=== PATIENT | male | born 1955 | race Caucasian/White ===

== ENCOUNTER 2022-04-01 15:59 | Emergency (ER) | payer MEDICARE, SELFPAY ==
[2022-04-01 16:08] VITALS: BP 156/77; PULSE 101; RESP 18; TEMP 36.7; O2SAT 98
--- NOTE | 2022-04-01 16:21 | ED.URI ---
HPI - URI/Sore Throat General Chief Complaint: Upper Respiratory Infection Stated Complaint: Sinus Pain Time Seen by Provider: 04/01/22 16:25 Source: patient and RN notes reviewed Mode of arrival: ambulatory Limitations: no limitations History of Present Illness HPI Narrative: 66-year-old male presents concern for 3 day history of sinus drainage, sore throat, cough, chills, body aches. Reports productive cough and runny nose. He reports he took Mucinex and Benadryl. He denies fever. 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 MD elicited complaint: cough and sinus pain Related Data Home Medications Medication Instructions Recorded Confirmed atorvastatin 20 mg tablet 20 mg PO DAILY 01/28/21 04/01/22 losartan 100 mg tablet 100 mg PO DAILY 01/28/21 04/01/22 Allergies Allergy/AdvReac Type Severity Reaction Status Date / Time No Known Allergies Allergy Unverified 04/01/22 16:19 Review of Systems Review of Systems: CONSTITUTIONAL: Reports malaise, chills. Denies sweats, or fever. EYES: Denies visual changes, redness, or discharge. ENT: Reports rhinorrhea, congestion, sinus pain. Denies otalgia and sore throat. CARDIOVASCULAR: Denies chest pain, palpitations, or edema. RESPIRATORY: Reports cough. Denies dyspnea. GASTROINTESTINAL: Denies abdominal pain, nausea, vomiting, diarrhea SKIN: Denies rash or itching. MUSCULOSKELETAL: Reports myalgia. NEUROLOGIC: Denies headache. All systems reviewed & are unremarkable except as noted in HPI and below PMFSH Past Medical History Medical History (Updated 04/01/22 @ 16:33 by Marian Aguirre NP) Hypercholesteremia Hypertension Family History Family History Mother Hypertension Father Malignant neoplasm of prostate Sibling Family history of malignant neoplasm of esophagus Other Cerebrovascular accident Social History Social History Smoking status: Never smoker Second hand tobacco smoke exposure: No Smoking end date: 05/18/05 Alcohol intake: current Comments At time of signature, agree with nursing past medical, surgical, social and family history. There is no relevant family history pertinent to the presenting complaint Exam Narrative: GENERAL: Well-appearing, well-nourished, and in no acute distress. HEAD: Normocephalic EYES: PERRLA, conjunctivae clear ENT: Nares clear, turbinates edematous and erythematous, clear discharge. Mucous membranes moist. TM pearly howell with sharp light reflex bilaterally; no tragal tenderness. Oropharynx not erythematous without lesions. Tonsils not enlarged and without exudate, no drooling, no hoarseness, no trismus, uvula midline. NECK: Supple. No lymphadenopathy CHEST: Clear to auscultation, breath sounds equal. No wheezing, rhonchi, rales, or stridor. No respiratory distress, speaks in full sentences. HEART: Regular rate and rhythm. No murmur heard. SKIN: Warm, dry, no rash. NEURO: Alert and oriented x3. PSYCH: Normal mood and affect Course Course Emergency Course: Patient is aware of diagnosis, understands and agrees to treatment plan. Anticipatory guidance given. Patient agrees to follow-up as directed and is aware of reasons to seek care at the emergency department. Portions of this record may have been created with voice recognition software Level of Care: Express Care Visit Vital Signs Vital signs: Vital Signs Temperature 98.1 F 04/01/22 16:08 Pulse Rate 101 H 04/01/22 16:08 Respiratory Rate 18 04/01/22 16:08 Blood Pressure 156/77 H 04/01/22 16:08 Pulse Oximetry 98 04/01/22 16:08 Oxygen Delivery Room Air 04/01/22 16:08 Temperature 98.1 F 04/01/22 16:08 Pulse Rate 101 H 04/01/22 16:08 Respiratory Rate 18 04/01/22 16:08 Blood Pressure 156/77 H 04/01/22 16:08 Pulse Oximetry 98 04/01/22 16:08 Oxygen Delivery Room Air 04/01/22 16:08 Reviewed. MDM
== END 2022-04-01 16:50 | disposition home or self-care (01) ==
PROVIDERS: Emergency Provider Nurse Practitioner; PCP Internal Medicine
DX: J40 Bronchitis, not specified as acute or chronic (principal); J32.9 Chronic sinusitis, unspecified; I10 Essential (primary) hypertension
CPT/HCPCS: 99213; G0463

== ENCOUNTER 2022-04-06 08:19 | Emergency (ER) | payer MEDICARE, SELFPAY ==
--- NOTE | ~2022-04-06 | XR_ITS ---
EXAMINATION: XR chest 2V DATE: 04/06/2022 09:25 INDICATION: 9 days of cough TECHNIQUE: frontal and lateral views of the chest were obtained. COMPARISON: None FINDINGS: Airspace opacities in the posterior basilar left lower lobe which are concerning for pneumonia. No ot her airspace opacities, pulmonary edema, pleural effusion or pneumothorax. The cardiomediastinal silh ouette is normal. Mild lower thoracic spondylosis with mild anterior wedging at T11 and T12. IMPRESSION: 1. Left lower lobe pneumonia. Reviewed, dictated and finalized at location A. PITTER
[2022-04-06 08:24] VITALS: BP 141/68; PULSE 91; RESP 20; TEMP 36.7; O2SAT 96
--- NOTE | 2022-04-06 08:59 | ED.URI ---
HPI - URI/Sore Throat General Chief Complaint: Upper Respiratory Infection Stated Complaint: Sinus Congestion/Cough Time Seen by Provider: 04/06/22 08:55 Source: patient, RN notes reviewed and old records reviewed Mode of arrival: ambulatory Limitations: no limitations History of Present Illness HPI Narrative: 66-year-old male who presents to [facility] with complaints of illness since the 29 March which includes cough, headache, sinus pressure with nasal drainage. Patient states he was seen Thursday and given steroids which did seem initially to help but symptoms have increased in the past 2 days. Patient states initially he had some clear drainage but now it has turned to yellow and some brownish drainage. Patient reports he has coughed so much that his ribs hurt.Patient reports that he had taken cough syrup, Benadryl and also some Sudafed HBP for his symptoms. MD elicited complaint: cough, rhinorrhea, nasal congestion and sinus pain Onset (ago): day(s) (8-9 days) Pain scale (0-10): 6 Description of mucous: yellow and other (brown) Treatments prior to arrival: cold medicine and other (cough syrup) Related Data Home Medications Medication Instructions Recorded Confirmed atorvastatin 20 mg tablet 20 mg PO DAILY 01/28/21 04/06/22 losartan 100 mg tablet 100 mg PO DAILY 01/28/21 04/06/22 Allergies Allergy/AdvReac Type Severity Reaction Status Date / Time No Known Allergies Allergy Verified 04/06/22 08:45 Review of Systems Review of Systems: CONSTITUTIONAL: Reports malaise, chills, sweats, or fever. EYES: Denies visual changes, redness, or discharge. ENT: Reports rhinorrhea, congestion, sinus pain, no otalgia or sore throat. CARDIOVASCULAR: Denies chest pain, palpitations, or edema, rib pain with cough RESPIRATORY: Reports cough.? Denies dyspnea, reports pain to ribs with coughing GASTROINTESTINAL: Denies abdominal pain, nausea, vomiting, diarrhea SKIN: Denies rash or itching. MUSCULOSKELETAL: Denies myalgia. NEUROLOGIC: Reports headache. All systems reviewed & are unremarkable except as noted in HPI and below PMFSH Past Medical History Medical History (Updated 04/07/22 @ 00:00 by Nathan Hinojosa) Hypercholesteremia Hypertension Sleep apnea Surgical History Surgical History (Updated 04/06/22 @ 10:20 by Jenae Zapata NP) H/O removal of cyst Left shoulder [place] teeth extracted Family History Family History Mother Hypertension Father Malignant neoplasm of prostate Sibling Family history of malignant neoplasm of esophagus Other Cerebrovascular accident Social History Social History (Updated 04/06/22 @ 10:18 by Jenae Zapata NP) Smoking status: Former smoker Second hand tobacco smoke exposure: No Smoking end date: 05/18/05 Alcohol intake: current Substance use type: does not use Lack of Transportation: No Lack of Food: Never True Current Housing: I Have Housing Concerned About Future Housing: No Difficulty Paying Gas/Electric Bills: No Difficulty Paying for Meds: No Currently Unemployed: No Education: Associate Degree Difficulty w/ Childcare or Family Care: No Gender identity (if verbalized by the patient): Male Comments At time of signature, agree with nursing past medical, surgical, social and family history. There is no relevant family history pertinent to the presenting complaint Exam Narrative: GENERAL: Well-appearing, well-nourished, and in no acute distress. HEAD: Normocephalic EYES: PERRLA, conjunctivae clear ENT: Nares clear, turbinates edematous and erythematous, yellow to brown nasal discharge. Mucous membranes moist. TM pearly howell with dull light reflex bilaterally; no tragal tenderness. Oropharynx erythematous without lesions. Tonsils not enlarged and without exudate, no drooling, no hoarseness, no trismus, uvula midline. Postnasal drainage NEC
== END 2022-04-06 10:25 | disposition home or self-care (01) ==
PROVIDERS: Emergency Provider Registered Nurse; PCP Internal Medicine
DX: J18.9 Pneumonia, unspecified organism (principal); E78.00 Pure hypercholesterolemia, unspecified; I10 Essential (primary) hypertension; Z87.891 Personal history of nicotine dependence
CPT/HCPCS: 71046; 99213; G0463

== ENCOUNTER → 2022-07-02 15:05 | Outpatient (CLI) | payer MEDICARE, SELFPAY ==
--- NOTE | ~2022-07-02 | MR_ITS ---
EXAMINATION: MR shoulder RT wo con DATE: 07/02/2022 15:43 INDICATION: Right shoulder pain. TECHNIQUE: Magnetic resonance imaging (MRI) of the right shoulder was performed without intravenous c ontrast. Sequences included axial PD-weighted FS FSE, coronal oblique PD-weighted FS FSE and T2-weigh chema FS FSE, and sagittal oblique T2-weighted FS FSE and T1-weighted FSE. COMPARISON: Right shoulder radiographs 04/03/2022 FINDINGS: Coracoacromial arch: The acromion undersurface is flat in morphology (type I). There is severe acromioclavicular joint ost eoarthritis including inferiorly directed osteophytes. There is mild subacromial/subdeltoid bursitis. Rotator cuff: There is moderate supraspinatus tendinopathy and mild infraspinatus tendinopathy. Teres minor tendon is normal. There is mild subscapularis tendinopathy. No tear. There is no asymmetric fatty atrophy of the rotator cuff muscle bellies. Biceps tendon and glenoid labrum: Biceps tendon is in bicipital groove. Intra-articular biceps tendon is normal. The glenoid labrum is normal. Fluid: There is no glenohumeral joint effusion. Bones/cartilage: There is cartilage surface irregularity of glenoid and humeral head. IMPRESSION: 1. Moderate rotator cuff tendinopathy. No tear. 2. Mild glenohumeral joint chondrosis. 3. Severe acromioclavicular joint osteoarthritis. 4. Mild subacromial/subdeltoid bursitis. Reviewed, dictated and finalized at location A. ING MACHINE OPERATOR
== END ==
PROVIDERS: PCP Internal Medicine; Visit Provider Physician Assistant Surgical
DX: M19.011 Primary osteoarthritis, right shoulder (principal); M75.51 Bursitis of right shoulder
CPT/HCPCS: 73221

== ENCOUNTER 2022-09-08 07:44 | Outpatient (CLI) | payer MEDICARE, SELFPAY ==
--- NOTE | 2022-09-08 07:50 | ECG_ITS ---
Measurements Intervals [place] Rate: 85 P: 10 ME: 168 QRS: 19 QRSD: 109 T: 44 QT: 357 QTc: 427 Interpretive Statements SINUS RHYTHM NORMAL ECG NO PREVIOUS ECG AVAILABLE FOR COMPARISON Electronically Signed On 09-08-2022 11:56:17 CDT by Bony Ivey M.D.
== END 2022-09-08 07:45 | disposition home or self-care (01) ==
LOC: ANHSURGERY 07:49
PROVIDERS: PCP Internal Medicine; Visit Provider Orthopaedic Surgery
DX: I10 Essential (primary) hypertension (principal); Z01.818 Encounter for other preprocedural examination
CPT/HCPCS: 93005

== ENCOUNTER 2022-09-12 01:41 | Day surgery (SDC) | payer MEDICARE, SELFPAY ==
--- NOTE | 2022-09-04 15:34 | PC.NURSE ---
Report to the Outpatient Waiting Room, entrance under the green pavilion located off [facility], at time __10:00AM on date __09/12/22 . Planned Procedure Time: __12:00PM . Time changes happen often and if your time is changed the preop area will call you the afternoon before. - You and your visitor will be asked to self-screen and do not enter if you have any COVID symptoms. - A mask is optional within the hospital at this time. Patients may have clear liquids (water, carbonated beverages, clear teas, apple juice) until 3 hours prior to surgery with a maximum of 20 ounces. - No food from midnight until time of surgery Take the following medications with a SIP of water the morning of surgery: ____NONE DO NOT STOP ANY OF YOUR OTHER PRESCRIPTION MEDICATIONS PRIOR TO SURGERY ?EXCEPT THE FOLLOWING Medications to discontinue per physician HOLD ALL VITAMINS/SUPPLEMENTS 3 DAYS PRE-OP Date to take last dose 09/08/22 Please no make-up, nail mozambican, hairspray, perfume, deodorant, or body powder the day of surgery. No jewelry (including any body piercings) or valuables the day of surgery, leave them at home. Please take a shower or bath the night before, or the morning of, surgery with an antibacterial soap. Wear comfortable, loose fitting clothing. Children are encouraged to wear pajamas. - Jewelry must be removed prior to entering the operating room. Rings and piercings that are not removed may be cut off. - The hospital will not accept responsibility for valuables. - Please leave all valuables, including medications, at home the day of surgery. If you are going home after surgery, a licensed utility driver must drive you home. - NO public transportation without another adult if you receive anesthesia. - We recommend that an adult stay with you for 24 hours following discharge. - We also recommend that you do not drive, make important decision, drink alcoholic beverages, or take any drugs that were not prescribed by your health care provider for at least 24 hours after your discharge time.. Follow any additional instructions given to you from your surgeon. If you or anyone in your household have experienced Covid symptoms in the past week, please notify your surgeon or the nurse liaison at the phone number below for possible testing. Telephone instructions given to __PATIENT and asked if any additional questions and then verbalized understanding. Patient advised to call surgeon office or pre surgery nurse liaison [phone] if any additional questions.
--- NOTE | 2022-09-11 12:50 | WPDANESEPPF ---
Anes - Initial Pre Proc Eval Procedure: Operation Date: 09/12/22 12:00 Proposed Procedures p Arthroscopic Subacromial Decompression Right Shoulder, Proceed as Indicated - Boston Vogel MD Date/Time: 09/11/22 12:50 Surgeon: Boston Vogel MD Pre Op Diagnosis: Rt Rot Cuff Tendonitis Patient Data Age: 67 Gender: M Height: Weight: Allergies Allergy/AdvReac Type Severity Reaction Status Date / Time No Known Allergies Allergy Verified 09/04/22 14:05 Home Medications Medication Instructions Recorded Confirmed Type atorvastatin 20 mg tablet 20 mg PO HS 01/28/21 09/04/22 History losartan 100 mg tablet 100 mg PO HS 01/28/21 09/04/22 History cholecalciferol (vitamin D3) 125 125 mcg PO DAILY 09/04/22 09/04/22 History mcg (5,000 unit) capsule loratadine 10 mg capsule 10 mg PO DAILY 09/04/22 09/04/22 History vitamin A-vitamin C-vit E-min 1 tablet PO DAILY 09/04/22 09/04/22 History tablet Patient hx anesthesia problems: none Family hx anesthesia problems: none Results Review: All pre-operative results and documents have been reviewed as part of the pre-operative evaluation. [facility] Past Medical History Medical History Hypercholesteremia Hypertension Sleep apnea Surgical History Surgical History H/O removal of cyst Left shoulder [place] teeth extracted Family History Family History Mother Hypertension Father Malignant neoplasm of prostate Sibling Family history of malignant neoplasm of esophagus Other Cerebrovascular accident Social History Social History Smoking packs per day: 1.5 Smoking cigarettes per day: 30.0 Years smoked: 30 Smoking pack-years: 45.00 Smoking status: Former smoker Tobacco type: cigarettes Second hand tobacco smoke exposure: No Smoking end date: 11/16/15 Alcohol intake: current Substance use: never Substance use type: does not use Lack of Transportation: No Lack of Food: Never True Current Housing: I Have Housing Concerned About Future Housing: No Difficulty Paying Gas/Electric Bills: No Difficulty Paying for Meds: No Currently Unemployed: No Education: Associate Degree Difficulty w/ Childcare or Family Care: No Living arrangements: with family Additional living arrangements comments: Gender identity (if verbalized by the patient): Male Spiritual care concerns: No Anes - Eval Final PreProcedure Day of Procedure 09/11/22 12:50 Patient weight: obese Heart: regular rate and rhythm Lungs: clear to auscultation Airway: Mallampati scale class III Neurological: alert and oriented Last oral intake: >/= 8 hours ASA classification: III Emergent: no Anesthetic plan: proceed Anesthesia type and monitoring: general ETT and standard monitoring Results Review: All pre-operative results and documents have been reviewed as part of the pre-operative evaluation. Informed Consent: The patient's anesthetic plan and its attendant risks and benefits were discussed with the patient/family/POA. Questions were solicited and answers provided to the satisfaction of the patient/family/POA.
[2022-09-12] VITALS (10 sets, daily range): BP systolic 148–181; BP diastolic 74–90; PULSE 80–99; RESP 14–20; TEMP 36.2; O2SAT 93–100; BMI 32.7
[2022-09-12] MEDS: LACTATED RINGERS 1,000 ML 30 ML IV CONT (10:30)
[2022-09-12] MEDS: ACETAMINOPHEN 500 MG TABLET 1000 MG PO (10:30)
[2022-09-12] MEDS: KETOROLAC 15 MG/ML VIAL (*BKC) IV PUSH (10:30)
--- NOTE | 2022-09-12 12:22 | WPDHPUPDATE1 ---
History and Physical Update Update Date/Time: 09/12/22 12:22 History and Physical has been reviewed, including an updated exam of the patient. There are NO changes in the patient's condition. Risks, benefits, and alternatives have been discussed and questions answered. Patient agrees to proceed with procedure.
--- NOTE | 2022-09-12 12:52 | WPDANESPNB ---
Anes - Peripheral Nerve Block Date/Time: 09/12/22 12:52 I have discussed with the patient/family/POA the placement of a peripheral nerve block for post-operative pain management, including associated risks, benefits, complications, and side effects. Alternative methods of post-operative analgesia were detailed. Questions were solicited and answers provided to the satisfaction of the patient/family/POA. Time-Out: A pre-procedural Time-Out was completed immediately before starting the procedure and confirmed: Patient Identification, Site, Procedure, Patient Position and the Availability of Requisite Equipment. Clinical Indications: Acute post-operative pain management requested by the operative surgeon. Nerve Block Insertion Note Anes-nerve block: interscalene right Patient position: supine Skin prep: chlorhexidine Needle: 22 gauge, stimulating, insulated echogenic needle. Needle length: 50 mm Technique: ultrasound Injectate: bupivacaine 0.5% with epi 5 mcg/ml (30cc- no epi) Observations: tolerated well Complications: none Procedure start time:: 1244 Procedure end time:: 124
[2022-09-12] MEDS: ceFAZolin 2 GM/D5W 50 ML 2 GM/50 ML BAG IVPB (13:04)
--- NOTE | 2022-09-12 14:55 | P.OP_ITS ---
Procedure Note - Detailed Date of Procedure 09/12/22 Pre-op Diagnosis Right shoulder rotator cuff tendonitis and impingement. Post-op Diagnosis Other (1. Rotator cuff tear (partial thickness) 2. Subacromial impingement ) Procedure Performed Right shoulder 1. Arthroscopic rotator cuff repair 2. Arthroscopic subacromial decompression Surgeon Boston Vogel MD Power Plant Engineer Angella Zurita PA-C Anesthesia General and Regional ( interscalene block) Findings Mid grade partial thickness articular tear. Primarily noted at the anterior supraspinatus but low grade extension to the infraspinatus. Bursal side intact. Biceps and subscapularis normal. Minimal labral fraying and chondromalacia of the superior humeral head. Extensive bursitis and evidence for impingement. The Regeneten implant was used to repair the cuff with 5 LIANA tendon anchors and 3 bone PEEK bone anchors. Description of Procedure Preoperative antibiotics were given. An interscalene block was administered in the preoperative area. The patient was bought brought to the operating room. A general anesthetic was administered. The patient was carefully positioned in the beach chair position. The head and neck were carefully positioned. The non operative extremity was also carefully positioned. The shoulder was prepped and draped in the usual sterile fashion. Examination was performed. No abnormalities. Standard posterior and anterior arthroscopic portals were established. Inflow achieved with the arthroscopic pump using saline and epinephrine. The glenohumeral joint was carefully inspected. Mid to low grade articular tear of the supra and infraspinatus. This was marked with a PDS suture, as was the rotator interval just anterior to the biceps tendon. Attention was turned to the subacromial space. A complete bursectomy was performed. The cuff integrity felt quite good, and only mild softening was encountered at the area of the anterior articular tear. A modest acromioplasty was performed. The Regenten collagen implant was introduced over the tear, and secured with multiple LIANA soft tissue anchors and 3 Peek bone anchors. The arthroscopic instruments were removed. The wounds were closed with 3-0 Monocryl subcuticular suture and steri strips. There were no complications. A sling was applied and the patient brought to the recovery room. Physician family medicine physician assistant, Angella Zurita PA-C, required for surgery; including patient positioning, draping, arthroscopic camera operation, maintaining instrument position, wound closure, and dressing and sling placement. Implants Regeneten collagen implant. 5 LIANA tendon anchors, 3 Peek bone anchors. Estimated Blood Loss 10 Pathology None sent Complications No immediate complications Condition Stable Disposition PACU [facility] Billing Surgery - Charge Forward: Surgery Billing
== END 2022-09-12 17:09 | disposition home or self-care (01) ==
PROVIDERS: PCP Internal Medicine; Visit Provider Orthopaedic Surgery
PROC: (CPT 29805; principal; 2022-09-12 12:00)
DX: M75.101 Unspecified rotator cuff tear or rupture of right shoulder, not specified as traumatic (principal); M75.41 Impingement syndrome of right shoulder; G89.18 Other acute postprocedural pain; I10 Essential (primary) hypertension; E78.00 Pure hypercholesterolemia, unspecified; G47.30 Sleep apnea, unspecified; Z87.891 Personal history of nicotine dependence; E66.9 Obesity, unspecified; Z68.32 Body mass index [BMI] 32.0-32.9, adult
CPT/HCPCS: 29827; 29826; 64415; A4565; A9270; C1713; J0330; J0690; J1100; J1885; J2250; J2370; J2405; J2704; J3010; J7120

== ENCOUNTER 2022-10-13 10:11 | Emergency (ER) | payer MEDICARE, SELFPAY ==
[2022-10-13 10:17] VITALS: BP 168/88; PULSE 79; RESP 18; TEMP 36.9; O2SAT 99
--- NOTE | 2022-10-13 10:42 | ED.URI ---
HPI - URI/Sore Throat General Chief Complaint: Upper Respiratory Infection Stated Complaint: Cough Time Seen by Provider: 10/13/22 10:42 Source: patient, RN notes reviewed and old records reviewed Mode of arrival: ambulatory Limitations: no limitations History of Present Illness HPI Narrative: 67 year old male present to express care with complaints of sinus congestion drainage and persistent cough for one week duration with expectoration of green phlegm. Patient reports that his cough is worse at night and is not sleeping well. Patient reports that he has been taking OTC cough medication, NyQuil, and takes daily antihistamine. Patient reports no fevers, dyspnea or any wheezing. Patient reports history of sinus problems. MD elicited complaint: cough, rhinorrhea, nasal congestion and other (frontal head pressure) Onset (ago): week(s) (1) Pain scale (0-10): 3 Able to tolerate fluids by mouth: Yes Treatments prior to arrival: other (cough medication and also antihistamine) Related Data Home Medications Medication Instructions Recorded Confirmed atorvastatin 20 mg tablet 20 mg PO HS 01/28/21 10/13/22 losartan 100 mg tablet 100 mg PO HS 01/28/21 10/13/22 cholecalciferol (vitamin D3) 125 125 mcg PO DAILY 09/04/22 10/13/22 mcg (5,000 unit) capsule loratadine 10 mg capsule 10 mg PO DAILY 09/04/22 10/13/22 vitamin A-vitamin C-vit E-min 1 tablet PO DAILY 09/04/22 10/13/22 tablet Allergies Allergy/AdvReac Type Severity Reaction Status Date / Time No Known Allergies Allergy Verified 10/13/22 10:28 Review of Systems Review of Systems: CONSTITUTIONAL: Denies malaise, chills, sweats, or fever. EYES: Denies visual changes, redness, or discharge. ENT: Reports rhinorrhea, congestion, sinus pain,no otalgia or sore throat. CARDIOVASCULAR: Denies chest pain, palpitations, or edema. RESPIRATORY: Reports cough which is worse at night.? Denies dyspnea. GASTROINTESTINAL: Denies abdominal pain, nausea, vomiting, diarrhea SKIN: Denies rash or itching. MUSCULOSKELETAL: Denies myalgia. NEUROLOGIC:Reports frontal head pressure type of headache All systems reviewed & are unremarkable except as noted in HPI and below PMFSH Past Medical History Medical History (Updated 10/14/22 @ 00:01 by Background Daemon) Hypercholesteremia Hypertension Sleep apnea Surgical History Surgical History (Updated 10/14/22 @ 09:20 by Jenae Zapata NP) H/O removal of cyst Left shoulder H/O repair of right rotator cuff History of tonsillectomy [place] teeth extracted Family History Family History Mother Hypertension Father Malignant neoplasm of prostate Sibling Family history of malignant neoplasm of esophagus Other Cerebrovascular accident Social History Social History (Updated 10/14/22 @ 09:21 by Jenae Zapata NP) Smoking packs per day: 1.5 Smoking cigarettes per day: 30.0 Years smoked: 30 Smoking pack-years: 45.00 Smoking status: Former smoker Tobacco type: cigarettes Second hand tobacco smoke exposure: No Smoking end date: 11/16/15 Alcohol intake: current Substance use: never Substance use type: does not use Lack of Transportation: No Lack of Food: Never True Current Housing: I Have Housing Concerned About Future Housing: No Difficulty Paying Gas/Electric Bills: No Difficulty Paying for Meds: No Currently Unemployed: No Education: Associate Degree Difficulty w/ Childcare or Family Care: No Living arrangements: with family Additional living arrangements comments: Occupation/Education: retired 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 There is no relevant family history pertinent to th
== END 2022-10-13 11:00 | disposition home or self-care (01) ==
PROVIDERS: Emergency Provider Registered Nurse; PCP Internal Medicine
DX: J06.9 Acute upper respiratory infection, unspecified (principal); I10 Essential (primary) hypertension; Z87.891 Personal history of nicotine dependence
CPT/HCPCS: 99213; G0463

== ENCOUNTER 2024-04-13 13:09 | Emergency (ER) | payer MEDICARE, SELFPAY ==
[2024-04-13 13:24] VITALS: BP 166/79; PULSE 99; RESP 16; TEMP 37.2; O2SAT 98
--- NOTE | 2024-04-13 13:43 | ED_ITS ---
HPI - URI/Sore Throat General Chief Complaint: Upper Respiratory Infection Stated Complaint: congestion Time Seen by Provider: 04/13/24 13:36 Source: patient, RN notes reviewed and old records reviewed Mode of arrival: ambulatory Limitations: no limitations History of Present Illness HPI Narrative: 68-year-old male who presents to [facility] with complaints of cough, sore throat, nasal drainage, some chills and body aches, and headaches for the past 2 days. Patient reports that he has been taking Tylenol and also Coricidin brand cough and congestion medication. Patient reports that his highest temperature n oted to be has been 101.4F. Patient denies any shortness of breath SAO2 98% on room air, no tachypnea noted or any retractions. MD elicited complaint: fever, cough, sore throat, rhinorrhea, nasal congestion and other (body aches) Onset (ago): day(s) (since yesterday) Severity: moderate Able to tolerate fluids by mouth: Yes Treatments prior to arrival: acetaminophen and other (Coricidin cough and congestion medication) Related Data Home Medications Medication Instructions Recorded Confirmed atorvastatin 20 mg tablet 20 mg PO HS 01/28/21 05/29/23 losartan 100 mg tablet 100 mg PO HS 01/28/21 05/29/23 cholecalciferol (vitamin D3) 125 125 mcg PO DAILY 09/04/22 05/29/23 mcg (5,000 unit) capsule multivitamin 1 tablet PO DAILY 10/24/22 05/29/23 meloxicam 15 mg tablet 15 mg PO DAILY 05/29/23 05/29/23 amlodipine 5 mg tablet mg 04/13/24 04/13/24 Allergies Allergy/AdvReac Type Severity Reaction Status Date / Time No Known Allergies Allergy Verified 04/13/24 13:14 Review of Systems Review of Systems: CONSTITUTIONAL:Reports malaise, chills, sweats, or fever. EYES: Denies visual changes, redness, or discharge. ENT: Reports rhinorrhea, congestion,no sinus pain, no otalgia and positive for sore throat. CARDIOVASCULAR: Denies chest pain, palpitations, or edema. RESPIRATORY: Reports cough.? Denies dyspnea. GASTROINTESTINAL: Denies abdominal pain, nausea, vomiting, diarrhea SKIN: Denies rash or itching. MUSCULOSKELETAL: reports myalgia. NEUROLOGIC: Reports headache. All systems reviewed & are unremarkable except as noted in HPI and below PMFSH Past Medical History Medical History Hypercholesteremia Hypertension Sleep apnea Surgical History Surgical History H/O removal of cyst Left shoulder H/O repair of right rotator cuff (~09/12/22) History of tonsillectomy [place] teeth extracted Family History Family History Mother Hypertension Father Malignant neoplasm of prostate Sibling Family history of malignant neoplasm of esophagus Other Cerebrovascular accident Social History Social History (Updated 05/29/23 @ 11:47 by Belinda Vargas) Smoking packs per day: 1.5 Smoking cigarettes per day: 30.0 Years smoked: 30 Smoking pack-years: 45.00 Smoking status: Former smoker Tobacco type: cigarettes Second hand tobacco smoke exposure: No Smoking end date: 11/16/15 Alcohol intake: current Substance use: never Substance use type: does not use Do You Feel Safe in your Home?: Yes Lack of Transportation: No Lack of Food: Never True Current Housing: I Have Housing Concerned About Future Housing: No Difficulty Paying Gas/Electric Bills: No Difficulty Paying for Meds: No Currently Unemployed: No Education: Associate Degree Difficulty w/ Childcare or Family Care: No Living arrangements: with family Additional living arrangements comments: Occupation/Education: retired 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 There is no relevant family history pertinent to the presenting complaint Exam Narrative: GENERAL: Well-appearing, well-nourished, and in no acute distress. HEAD: Normocephalic EYES: PERRLA, conjunctivae clear ENT: Nares clear, turbinates edematous and erythematous, clear discharge. Mucous membranes moist. TM pearly howell with dull light reflex bilaterally; no tragal tenderness. Oropharynx erythematous without lesions. Tonsils not enlarged and without exudate, no drooling, no hoarseness, no trismus, uvula midline.some post nasal drainage noted NECK: Supple. No lymphadenopathy CHEST: Clear to auscultation, breath sounds equal. No wheezing, rhonchi, rales, or stridor. No respiratory distress, speaks in full sentences. cough noted SAO2 98% on room air HEART: Regular rate and rhythm. No murmur heard. SKIN: Warm, dry, no rash. NEURO: Alert and oriented x3. PSYCH: Normal mood and affect Course Course Emergency Course: Patient is aware of diagnosis, understands and agrees to treatment plan.? Anticipatory guidance given.? Patient agrees to follow-up as directed and is aware of reasons to seek care at the emergency department. Portions of this record may have been created with voice recognition software Level of Care: Express Care Visit Vital Signs Vital signs: Vital Signs Temperature 37.2 C 04/13/24 13:24 Pulse Rate 99 04/13/24 13:24 Respiratory Rate 16 04/13/24 13:24 Blood Pressure 166/79 H 04/13/24 13:24 Pulse Oximetry 98 04/13/24 13:24 Oxygen Delivery Room Air 04/13/24 13:24 Temperature 37.2 C 04/13/24 13:24 Pulse Rate 99 04/13/24 13:24 Respiratory Rate 16 04/13/24 13:24 Blood Pressure 166/79 H 04/13/24 13:24 Pulse Oximetry 98 04/13/24 13:24 Oxygen Delivery Room Air 04/13/24 13:24 Reviewed MDM - URI/Sore Throat MDM Narrative Medical decision making narrative: Differential diagnosis considered: Daley virus, strep pharyngitis, allergic rhinitis, upper respiratory tract infection, sinusitis, rhinosinusitis, nasopharyngitis. viral pharyngitis, otitis media, otitis externa, pneumonia, bronchitis, viral cough syndrome, viral syndrome, and influenza.? Exam findings show no acute concerns or changes; patient is non-toxic appearing and is in no distress.? Patient is appropriate for outpatient treatment and follow-up. Differential Diagnosis Differential diagnosis: Likely upper respiratory infection, viral infection, influenza and other (COVID, cough) Medical Records Attestation: I reviewed the patient's medical records. Lab Data Attestation: I reviewed the patient's lab results. Lab results narrative: COVID antigen positive, Influenza A negative, Influenza B negative Critical Care Time Critical Care Time Critical Care Time: No Discharge Plan Discharge Clinical Impression: COVID-19 Patient Disposition: Home, Self-Care Condition: Stable Instructions: Antibiotic Form, How to Recover from COVID-19 at Home (ED) Additional Instructions: Increase fluids especially juices and water [id number] cough and cold medicine of your choice for your symptoms Tylenol and ibuprofen can alternate for fever and achiness Zyrtec Claritin or Gloria daily may include Coricidin brand decongestant heat to the face 20-30 minutes 4-6 times a day for pain Salt water gargles, throat lozenges or throat sprays as desired Robitussin or Delsym cough syrup some COVID-19 DISCHARGE The following recommendations have been made by the CDC and local Health Departments, regarding COVID-19: Those individuals with mild cases of COVID-19 can generally be discontinued from isolation, 5 days AFTER the onset of symptoms AND the resolution of fever for 24hrs (without the use of fever-reducing medications) Those individuals who were asymptomatic, and tested positive, are discontinued from isolation 10 days AFTER their first positive COVID-19 test Those individuals with SEVERE to CRITICAL illness or immunocompromised diseases may require up to 20 days of home isolation or hospitalization Majority of mild to moderate cases can be treated at home, without hospitalization or prescription medications You do not need a negative test result to return to work/school, assuming the above recommendations have been met and you are not symptomatic. At this time, return to work/school notes will not be provided. Guidelines from the local Health Department, CDC, and workplace are expected to be followed. All individuals in the household need to remained quarantined for up to 14 days if asymptomatic OR 10 days after the start of symptoms. Everyone in the home DOES NOT require testing, they are presumed positive and should quarantine as directed. Treating symptoms for mild to moderate cases may include: Tylenol, Flonase/nasal spray, OTC cold/flu medications recommended from your provider or any necessary prescription medications provided at your visit or from your PCP IF YOU TESTED NEGATIVE If you are symptomatic with reason to believe you have COVID-19, there is a high possibility your rapid test may not have detected the virus. Rapid testing is dependent on timing and viral load and may have a false- negative reading You should follow appropriate guidelines regarding quarantine, hand washing, mask wearing, and social distancing You may be sent for PCR testing as an outpatient to the [facility] Common Adult Symptoms: Fever/chills Cough Shortness of breath Fatigue, muscle aches Headache Loss of taste/smell Sore throat, congestion, runny nose GI symptoms (nausea, vomiting, diarrhea) Common Pediatric Symptoms Cough Fever GI symptoms (diarrhea, upset stomach, nausea, vomiting) Symptoms may differ in severity however, most cases do not require hospitalization. WHEN TO SEEK ER EVALUATION/TREATMENT Severe/persistent shortness of breath or difficulty breathing Elevated, persistent fevers without resolution with fever-reducing medications Chest pain Extreme fatigue/lethargy Complications of pre-existing disease Prescriptions: No Action amlodipine 5 mg tablet multivitamin Tablet 1 tablet PO DAILY meloxicam 15 mg tablet 15 mg PO DAILY atorvastatin 20 mg tablet 20 mg PO HS losartan 100 mg tablet 100 mg PO HS cholecalciferol (vitamin D3) 125 mcg (5,000 unit) Capsule 125 mcg PO DAILY Follow-up/Referrals: Charly,Edgar Thao MD [Primary Care Provider] - Time of Disposition: 13:55 Quality [place] Coma Scale Eyes: Open Verbal: Oriented and Alert Motor: Follows Commands [place] Coma Total Score: 15
== END 2024-04-13 14:06 | disposition home or self-care (01) ==
PROVIDERS: Emergency Provider Registered Nurse; PCP Internal Medicine
DX: U07.1 COVID-19 (principal); Z87.891 Personal history of nicotine dependence; I10 Essential (primary) hypertension; E78.00 Pure hypercholesterolemia, unspecified
CPT/HCPCS: 87635; 87804; 99212; G0463

== ENCOUNTER 2024-04-23 11:34 | Emergency (ER) | payer MEDICARE, SELFPAY ==
[2024-04-23 11:47] VITALS: BP 146/78; PULSE 78; RESP 20; TEMP 37; O2SAT 99
--- NOTE | 2024-04-23 13:26 | ED.GENADULT ---
HPI - General Adult General Chief complaint: Extremity Injury, Lower Stated complaint: Left Leg Injury Source: patient Mode of arrival: ambulatory Limitations: no limitations History of Present Illness HPI narrative: Patient presents for evaluation of pain in left calf since yesterday. He was coming off a step ladder and felt something ?pop? in his posterior left lower leg. Since that time he has noted significant pain with plantar flexion while walking. At rest he has no pain but with movement the sharp pain makes him feel at times as though he may fall over. He does not provide me with a numerical rating to his symptoms. He is not taking any medication for symptoms. No significant swelling and no erythema present. Related Data Home Medications Medication Instructions Recorded Confirmed atorvastatin 20 mg tablet 20 mg PO HS 01/28/21 04/23/24 losartan 100 mg tablet 100 mg PO HS 01/28/21 04/23/24 cholecalciferol (vitamin D3) 125 125 mcg PO DAILY 09/04/22 04/23/24 mcg (5,000 unit) capsule multivitamin 1 tablet PO DAILY 10/24/22 04/23/24 meloxicam 15 mg tablet 15 mg PO DAILY 05/29/23 04/23/24 amlodipine 5 mg tablet 5 mg PO DAILY 04/13/24 04/23/24 tobramycin 0.3 % eye drops 1 drp EACH EYE QID 04/23/24 04/23/24 Allergies Allergy/AdvReac Type Severity Reaction Status Date / Time No Known Allergies Allergy Verified 04/23/24 12:04 Review of Systems Review of Systems: CONSTITUTIONAL: Denies fever, chills, or sweats. EYES: Denies visual changes, redness, or discharge. ENT: Denies rhinorrhea, congestion, sore throat, or otalgia. CARDIOVASCULAR: Denies chest pain, palpitations, or edema. RESPIRATORY: Denies cough or dyspnea. GASTROINTESTINAL: Denies abdominal pain, nausea, vomiting, or diarrhea. GENITOURINARY: Denies dysuria or hematuria. SKIN: Denies rash or lesions MUSCULOSKELETAL: Reports pain in the left calf NEUROLOGIC: Denies headache, numbness, dizziness, or weakness. PSYCHIATRIC: Denies anxiety or depression. [facility] Past Medical History Medical History Hypercholesteremia Hypertension Sleep apnea Surgical History Surgical History H/O removal of cyst Left shoulder H/O repair of right rotator cuff (~09/12/22) History of tonsillectomy [place] teeth extracted Family History Family History Mother Hypertension Father Malignant neoplasm of prostate Sibling Family history of malignant neoplasm of esophagus Other Cerebrovascular accident Social History Social History Smoking packs per day: 1.5 Smoking cigarettes per day: 30.0 Years smoked: 30 Smoking pack-years: 45.00 Smoking status: Former smoker Tobacco type: cigarettes Second hand tobacco smoke exposure: No Smoking end date: 11/16/15 Alcohol intake: current Substance use: never Substance use type: does not use Do You Feel Safe in your Home?: Yes Lack of Transportation: No Lack of Food: Never True Current Housing: I Have Housing Concerned About Future Housing: No Difficulty Paying Gas/Electric Bills: No Difficulty Paying for Meds: No Currently Unemployed: No Education: Associate Degree Difficulty w/ Childcare or Family Care: No Living arrangements: with family Additional living arrangements comments: Occupation/Education: retired 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 HEAD: Normocephalic, atraumatic. EYES: PERRLA and EOMI. ENT: Nares clear, no rhinorrhea or epistaxis. Mucous membranes moist. Oropharynx without tonsillar hypertrophy exudate or other lesions. Bilateral TMs pearly howell nonbulging NECK: Supple. No adenopathy or masses. No carotid bruits or JVD CHEST: Clear to auscultation. No respiratory distress. No wheezes rales or rhonchi HEART: Regular rate and rhythm. No murmur heard. Normal peripheral pulses. ABDOMEN: Soft, nontender, nondistended, normal active bowel sounds. EXTREMITIES: He is able to perform dorsi and plantar flexion of the left foot. Negative Barr's test. There is tenderness over the left calf. There is no significant swelling. No cords. SKIN: Warm, dry, no rash. There is no erythema in left calf NEURO: No focal deficits. Alert and oriented x3. PSYCH: Normal mood and affect. Course Course Emergency Course: This is a 68-year-old male who presented for evaluation of pain in the left calf after stepping off a stepladder yesterday. He has no pain in the knee or ankle to suggest fracture. His pain is localized to the left calf. Achilles tendon appears and tacked based on time since test. He does have tenderness in the left calf which is consistent with a muscle strain. There is no evidence of DVT. Here he has an orthopedic and is pleased with his care with that provider. I recommended he contact Dr. Vogel on Thursday for an appointment. He was provide a knee immobilizer and crutches. OTC meds for symptom management. Go to the ER for swelling or erythema in left lower leg. Patient in agreement with plan of care. Level of Care: Express Care Visit Vital Signs Vital signs: Vital Signs Temperature 37.0 C 04/23/24 11:47 Pulse Rate 78 04/23/24 11:47 Respiratory Rate 20 04/23/24 11:47 Blood Pressure 146/78 H 04/23/24 11:47 Pulse Oximetry 99 04/23/24 11:47 Oxygen Delivery Room Air 04/23/24 11:47 Temperature 37.0 C 04/23/24 11:47 Pulse Rate 78 04/23/24 11:47 Respiratory Rate 20 04/23/24 11:47 Blood Pressure 146/78 H 04/23/24 11:47 Pulse Oximetry 99 04/23/24 11:47 Oxygen Delivery Room Air 04/23/24 11:47 Medical Decision Making Vital Signs Vital Signs: Vital Signs Temperature 37.0 C 04/23/24 11:47 Pulse Rate 78 04/23/24 11:47 Respiratory Rate 20 04/23/24 11:47 Blood Pressure 146/78 H 04/23/24 11:47 Pulse Oximetry 99 04/23/24 11:47 Oxygen Delivery Room Air 04/23/24 11:47 Temperature 37.0 C 04/23/24 11:47 Pulse Rate 78 04/23/24 11:47 Respiratory Rate 20 04/23/24 11:47 Blood Pressure 146/78 H 04/23/24 11:47 Pulse Oximetry 99 04/23/24 11:47 Oxygen Delivery Room Air 04/23/24 11:47 Discharge Plan Discharge Clinical Impression: Hamstring muscle strain Patient Disposition: Home, Self-Care Condition: Stable Instructions: Antibiotic Form, Hamstring Injury (ED) Patient Language: Upper Sorbian Prescriptions: No Action amlodipine 5 mg tablet 5 mg PO DAILY tobramycin 0.3 % drops 1 drp EACH EYE QID multivitamin Tablet 1 tablet PO DAILY meloxicam 15 mg tablet 15 mg PO DAILY atorvastatin 20 mg tablet 20 mg PO HS losartan 100 mg tablet 100 mg PO HS cholecalciferol (vitamin D3) 125 mcg (5,000 unit) Capsule 125 mcg PO DAILY Follow-up/Referrals: Parks,Edgar Thao MD [Primary Care Provider] - [place] Vogel MD [Physician] - Time of Disposition: 13:22
== END 2024-04-23 13:30 | disposition home or self-care (01) ==
PROVIDERS: Emergency Provider Nurse Practitioner; PCP Internal Medicine
DX: S76.312A Strain of muscle, fascia and tendon of the posterior muscle group at thigh level, left thigh, initial encounter (principal); X58.XXXA Exposure to other specified factors, initial encounter; I10 Essential (primary) hypertension; E78.00 Pure hypercholesterolemia, unspecified; Z87.891 Personal history of nicotine dependence
CPT/HCPCS: 99213; G0463; L1830